=== PATIENT | male | born 2000 | race Caucasian/White ===

== ENCOUNTER → 2020-02-18 | Outpatient (CLI) | payer BC, OTHER ==
--- NOTE | 2020-02-18 10:22 | Diagnostic Imaging Report ---
INDICATION: Fracture follow-up COMPARISON: None available TECHNIQUE: 3 radiographs of the left hand dated 02/18/2020 FINDINGS: Transversely oriented fractures are identified associated with the bases of the 4th and 5th metacarpals. Fractures do not appear significantly displaced. The fracture involving the base of the 5th metacarpal appears to likely extend to the 5th CMC joint. No significant periosteal reaction identified at this time. No additional fracture or dislocation. No suspicious radiopaque foreign body. Carpal alignment is well-maintained. IMPRESSION: Recent appearing essentially nondisplaced fractures involving the bases of the 4th and 5th metacarpals with probable intra-articular extension to the 5th CMC joint associated with the 5th metatarsal fracture. No significant healing identified at this time. Dictated by: Dictated on workstation # [id number]
== END ==
LOC: RAD FS 08:24
PROVIDERS: ATTEND Nurse Practitioner
DX: S62.317D Displaced fracture of base of fifth metacarpal bone, left hand, subsequent encounter for fracture with routine healing (principal); X58.XXXD Exposure to other specified factors, subsequent encounter
CPT/HCPCS: 73130